=== PATIENT | male | born 2000 | race African-American/Black ===

== ENCOUNTER 2023-03-14 15:05 | Emergency (ER) | payer MEDICAID ==
[~2023-03-14] VITALS: Ht 182.9 cm; Wt 106.6 kg
[2023-03-14 15:17] VITALS: O2SAT 99
[2023-03-14] MEDS ORDERED: TOPUD MT (15:30)
[2023-03-14] MEDS: ACETAMINOPHEN 325MG TABLET PO ONE (15:30)
[2023-03-14 16:07] VITALS: BP 155/89; PULSE 85; RESP 18; TEMP 98.1
== END 2023-03-14 16:12 | disposition home or self-care (01) ==
LOC: ER 15:05
DX: G89.18 Other acute postprocedural pain (principal)
CPT/HCPCS: 99282

== ENCOUNTER 2023-06-14 13:42 | Emergency (ER) | payer MEDICARE, MEDICAID ==
[~2023-06-14] VITALS: Ht 188 cm; Wt 98.0 kg
[~2023-06-14 13:42] MED LIST: TOPUD MT
[2023-06-14 14:06] VITALS: BP 163/101; PULSE 113; RESP 15; TEMP 98.5; O2SAT 100
== END 2023-06-14 17:26 | disposition home or self-care (01) ==
LOC: ER 14:22
DX: N43.40 Spermatocele of epididymis, unspecified (principal)
CPT/HCPCS: 76870; 93976; 99284